=== PATIENT | male | born 1935 | race Caucasian/White ===

== ENCOUNTER 2017-07-31 20:22 | Inpatient (IN) | END 2017-08-03 16:08 | disposition home or self-care (01) | DRG 313 ==

== ENCOUNTER 2017-11-18 13:45 | Emergency (ER) | END 2017-11-18 22:10 | disposition home or self-care (01) ==

== ENCOUNTER 2017-11-30 15:34 | Inpatient (IN) | END 2017-12-01 15:30 | disposition home or self-care (01) | DRG 313 ==

== ENCOUNTER 2017-12-15 11:29 | Emergency (ER) | END 2017-12-15 13:43 | disposition home or self-care (01) ==

== ENCOUNTER 2018-02-05 11:06 | Emergency (ER) | END 2018-02-05 16:30 | disposition home or self-care (01) ==

== ENCOUNTER 2018-03-01 22:12 | Emergency (ER) | END 2018-03-02 05:30 | disposition home or self-care (01) ==